=== PATIENT | male | born 1995 ===

== ENCOUNTER 2022-08-24 01:17 | Emergency (ER) | payer BC, SELFPAY ==
[2022-08-24 01:38] LABS: Basophils Absolute Auto 0.1 K/mm3 (0.0-0.1); Basophils Percent Auto 0.5 % (0.2-1.2); Eosinophils Absolute Auto 0.1 K/mm3 (0-0.3); Hematocrit 44.5 % (42.0-52.0); Hemoglobin 13.9 g/dL (14.0-18.0); Immature Granulocyte Absolute 0.34 K/mm3 (0.00-0.031); Immature Granulocyte Percent A 2.7 % (0-0.5); Lymphocytes Absolute Auto 6.53 K/mm3 (0.9-3.2); Lymphocytes Percent Auto 51.3 % (18.3-44.2); Mean Corpuscular HGB Conc 31.2 g/dl (32-36); Mean Corpuscular Volume 96.1 fl (80-100); Mean Platelet Volume 9.9 fl (7.4-10.4); Monocytes Absolute Auto 0.8 K/mm3 (0.1-0.6); Monocytes Percent Auto 6.4 % (2.6-8.5); Neutrophils Absolute Auto 4.9 K/mm3 (1.3-6.7); Neutrophils Percent Auto 38.1 % (45.5-73.1); Nucleated Red Blood Cells Perc 0.3 % (0.0-0.2); Platelet Count Result 212 k/mm3 (150-375); Red Blood Count 4.63 M/mm3 (4.6-6.20); Red Cell Distribution Width 12.2 % (11.5-14.5); White Blood Count 12.7 K/mm3 (4.5-10.0)
[2022-08-24 01:44] VITALS: BP 125/44; PULSE 77; PULSE 98; RESP 34; O2SAT 98
[2022-08-24 01:48] LABS: INR 1.3; Prothrombin Time 15.4 Seconds (11.1-14.7)
[2022-08-24 01:49] LABS: Partial Thromboplastin Time 34.4 SECONDS (22.3-36.8)
[2022-08-24 01:58] LABS: Alanine Aminotransferase 104 U/L (6-50); Albumin Level 4.5 g/dL (3.5-5.1); Alkaline Phosphatase 94 U/L (38-126); Anion Gap 28 mmol/L (8-16); Aspartate Amino Transferase 105 U/L (17-59); Bilirubin,Total 0.5 mg/dL (0.2-1.3); Blood Urea Nitrogen 14 mg/dL (9-20); Calcium 8.6 mg/dL (8.4-10.2); Carbon Dioxide 19 mmol/L (22-30); Chloride 99 mmol/L (98-107); Estimated Glomerular Filt Rate 49; Glucose 298 mg/dL (65-110); Magnesium 2.6 mg/dL (1.6-2.3); Sodium 146 mmol/L (137-145)
[2022-08-24 02:03] LABS: Ethanol < 10 mg/dL (<10)
[2022-08-24 02:10] LABS: Troponin I < 0.012 ng/mL (0.000-0.034)
--- NOTE | 2022-08-24 02:13 | ED.GENADULT ---
HPI - General Adult General Chief complaint: Cardiac Arrest/CPR Stated complaint: unresponsive Time Seen by Provider: 08/24/22 01:43 History of Present Illness HPI narrative: Patient 26-year-old gentleman who presents the emergency department with chief complaint of cardiac arrest Patient was brought in by EMS unresponsive intubated in the field with CPR in progress. The patient was a probable fentanyl overdose per EMS report and was given Narcan and epinephrine in the field. Related Data Allergies Allergy/AdvReac Type Severity Reaction Status Date / Time amoxicillin Allergy Unknown Verified 01/18/17 13:11 unk antibiotic Allergy Unknown Uncoded 11/30/16 17:43 Review of Systems Review of Systems: ROS unobtainable: Yes unobtainable due to endotracheal tube, unobtainable due to medical condition and unobtainable due to mental status PMFSH Social History Social History Smoking status: Never smoker Alcohol intake: current Exam Narrative: GENERAL: Ill-appearing unresponsive CPR in progress HEAD: Normocephalic, atraumatic. EYES: Pupils fixed and dilated. ENT: Nares clear, no rhinorrhea or epistaxis. Mucous membranes moist. Endotracheal tube in the oropharynx NECK: Supple. CHEST: Clear with bag valve ventilation. HEART: Absent cardiac activity pulses present with compressions. ABDOMEN: Soft, nontender, nondistended, normal active bowel sounds. EXTREMITIES: No signs of trauma SKIN: Warm, dry, no rash. NEURO: Unresponsive. PSYCH: Unresponsive. Course Course Emergency Course: Differential diagnosis includes overdose cardiac event dysrhythmia, PE, AMI ACLS protocols were continued upon arrival. Patient initially had IV access via an IO peripheral access was attempted by nursing staff a right femoral triple-lumen line was placed in emergent fashion Please see code summary see sheet for full code summary. ACLS was continued for greater than 30 minutes The patient was pronounced at 0209 Vital Signs Vital signs: Vital Signs Pulse Rate 77 08/24/22 01:44 Respiratory Rate 34 H 08/24/22 01:44 Blood Pressure 125/44 L 08/24/22 01:44 Pulse Oximetry 98 08/24/22 01:44 Pulse Rate 98 08/24/22 01:44 Respiratory Rate 34 H 08/24/22 01:44 Blood Pressure 125/44 L 08/24/22 01:44 Pulse Oximetry 98 02/22/23 01:44 Procedures Central Line Placement Right Femoral: Central Line Date: 08/24/22 Central Line Time: 01:50 Performed Emergently - Given emergent patient condition, temporal constraints may have precluded informed consent.: Yes Patient Placed on Monitor/Pulse Ox: Yes Max. Sterile Barrier Technique: Caps, large sterile sheet and hand hygiene Central Line Prep: 2% chlorhexidine scrub and sterile drapes applied Emergently Placed, Full Sterile: prep not done Technique: seldinger Local Anesthetic: none Central Line Lumen Inserted: triple Post Procedure: sutured in place, good blood return, all ports aspirated, flushed, capped and sterile dressing applied Post Procedure X-Ray: other (n/a) Patient Tolerated Procedure: well and no complications Complications: none Medical Decision Making Vital Signs Vital Signs: Vital Signs Pulse Rate 77 08/24/22 01:44 Respiratory Rate 34 H 08/24/22 01:44 Blood Pressure 125/44 L 08/24/22 01:44 Pulse Oximetry 98 08/24/22 01:44 Pulse Rate 98 08/24/22 01:44 Respiratory Rate 34 H 08/24/22 01:44 Blood Pressure 125/44 L 08/24/22 01:44 Pulse Oximetry 98 08/24/22 01:44 Lab Data 08/24/22 01:32 08/24/22 01:32 Labs: Lab Results 08/24/22 08/24/22 08/24/22 Range/Units 01:32 01:32 01:32 WBC 12.7 H (4.5-10.0) K/mm3 RBC 4.63 (4.6-6.20) M/mm3 Hgb 13.9 L (14.0-18.0) g/dL Hct 44.5 (42.0-52.0) % MCV 96.1 (80-100) fl MCH 30.0 (26-34) pg MCHC
[2022-08-24 02:17] LABS: Lactic Acid Reflex 16.3 mmol/L (0.7-2.0)
[2022-08-24 02:32] LABS: Appearance Urine Clear (Clear); Bilirubin Urine 1+ (Negative); Blood Urine 2+ (Negative); Color Urine Yellow (Yellow); Glucose Urine UA Negative (Negative); Ketones Urine Negative (Negative); Leukocyte Esterase Ur Negative LEU/UL (Negative); Nitrate Urine Negative (Negative); Protein Urine 1+ mg/dL (Negative); Specific Grav Ur >= 1.030 (1.001-1.035); Urobilinogen Urine 0.2 mg/dL (<2.0)
[2022-08-24 02:33] LABS: Mucus Urine Few /lpf; RBC Urine >75 /hpf (0-2); Squamous Epithelial Cell Urine Rare /hpf (Few)
[2022-08-24 02:34] LABS: Add Urine Microscopic? YES
[2022-08-24 02:42] LABS: Amphetamine Screen Urine Negative (Negative); Barbiturate Screen Urine Negative (Negative); Benzodiazepines Screen Urine Positive (Negative); Cannabinoid Screen Urine Negative (Negative); Cocaine Screen Urine Negative (Negative); Methadone Screen Urine Negative (Negative); Opiate Screen Urine Negative (Negative); Phencyclidine Screen Urine Negative (Negative)
--- NOTE | 2022-08-24 03:01 | PC.NURSE ---
Etl Database Developer here at this time speaking with the family
--- NOTE | 2022-08-24 04:30 | PC.NURSE ---
[employer] Press Operator Apprentice releasing body to the morgue at this time. Family still undecided on home. States they will call and let ED know when they have decided
[2022-08-24 04:50] LABS: Reflex Lactic Acid Yes or No Add Lactic
--- NOTE | 2022-08-24 14:54 | PC.NURSE ---
per mother, please release to [facility] [place]
[2022-08-24 16:36] LABS: Glucose Point of Care 243 mg/dl (65-105)
== END 2022-08-24 05:29 | disposition expired ==
PROVIDERS: Emergency Provider Emergency Medicine; PCP Family Medicine
DX: I46.9 Cardiac arrest, cause unspecified (principal)
CPT/HCPCS: 31500; 36415; 36600; 51702; 80053; 80307; 81001; 82948; 83605; 83735; 84484; 85025; 85610; 85730; 92950; 99285; C1751; J0171; J0282; J0461; J3475; J7030; J7060